=== PATIENT | male | born 1950 | race Caucasian/White ===

== ENCOUNTER → 2023-03-28 15:46 | Outpatient (CLI) | payer MEDICARE, OTHER, SELFPAY ==
--- NOTE | 2023-03-28 | DI.MRI.S_ITS ---
PROCEDURE: MR KNEE LT WO CON INDICATIONS: Unilateral primary osteoarthritis, left knee TECHNIQUE: Noncontrast sagittal PD fast spin echo and T2 fast spin echo with fat saturation, sagittal 3-D FLASH with fat saturation; coronal T1 spin echo and PD fast spin echo with fat saturation, and axial PD fast spin echo with fat saturation through the knee. COMPARISON: None. FINDINGS: Image quality: Excellent. Menisci: There is complex degenerative tear of the posterior horn of the medial meniscus. Horizontal tear is seen in the body of the medial meniscus. Complex degenerative tear is also seen in the anterior horn and body of the lateral meniscus. There is intrasubstance degeneration in the posterior horn of the lateral meniscus. The meniscal root ligaments appear intact. Cruciate ligaments: There is chronic partial tear/scarring versus mucoid degeneration of anterior cruciate ligament. The posterior cruciate ligament is intact. Medial structures: The medial collateral ligament appears intact. The semimembranosus tendon insertions and meniscocapsular junction appear intact. Visualized portions of the pes anserinus tendons appear normal. No abnormal bursal fluid. Lateral structures: The lateral collateral ligament and the biceps femoris tendon appear intact. The popliteus tendon appears normal. Iliotibial band appears normal. Anterior structures: The quadriceps and patellar tendons appear intact. There is low-grade quadriceps tendinitis and patellar tendinitis. Patellar alignment is normal. No femoral trochlear dysplasia or ventral trochlear prominence. No edema in the infrapatellar fat pad. Bones and cartilage: No bone marrow contusions or fractures. There is [id number] tricompartmental cartilage thinning and fibrillation. Joint space: There is small knee joint effusion. There is a moderate to large sized Carson's cyst. Normal appearing synovial plicae are incidentally noted. IMPRESSION: 1. Medial meniscal tear. 2. Lateral meniscal tear. 3. Chronic partial tear/scarring versus mucoid degeneration of ACL. 4. [id number] tricompartmental cartilage thinning and fibrillation. 5. A [id number] sized Carson cyst. 6. Mild quadriceps tendinitis and patellar tendinitis. 7. Small knee joint effusion. Dictated by: Steve Urrutia M.D. on 03/31/2023 at 7:30 Approved by: Steve Urrutia M.D. on 03/31/2023 at 8:09
== END ==
PROVIDERS: Referring Provider Family Medicine; Visit Provider Family Medicine
DX: M23.222 Derangement of posterior horn of medial meniscus due to old tear or injury, left knee (principal); M23.242 Derangement of anterior horn of lateral meniscus due to old tear or injury, left knee; M76.52 Patellar tendinitis, left knee; M17.12 Unilateral primary osteoarthritis, left knee; M25.462 Effusion, left knee
CPT/HCPCS: 73721